=== PATIENT | male | born 1995 | race Caucasian/White ===

== ENCOUNTER 2023-08-05 13:29 | Emergency (ER) | payer BC ==
[2023-08-05 13:42] LABS: BASOPHILS ABSOLUTE AUTO 0.03 K/uL (0.00-0.20); BASOPHILS PERCENT AUTO 0.3 % (0.0-1.0); EOSINOPHILS ABSOLUTE AUTO 0.11 K/uL (0.00-0.45); EOSINOPHILS PERCENT AUTO 1.3 % (0.0-6.0); HEMATOCRIT 52.8 % (42.0-52.0); HEMOGLOBIN 18.6 g/dL (14.0-18.0); IMMATURE GRAN ABSOLUTE AUTO 0.03 K/uL (0.00-0.05); IMMATURE GRAN PERCENT AUTO 0.3 % (0.0-0.4); LYMPHOCYTES ABSOLUTE AUTO 2.38 K/uL (1.00-4.80); LYMPHOCYTES PERCENT AUTO 27.4 % (24.0-44.0); MEAN CORPUSCULAR HEMOGLOBIN 30.2 pg (28.0-32.0); MEAN CORPUSCULAR HGB CONC 35.2 g/dL (32.0-36.0); MEAN CORPUSCULAR VOLUME 85.9 fL (83.0-99.0); MEAN PLATELET VOLUME 8.3 fL (9.4-12.4); MONOCYTES ABSOLUTE AUTO 0.59 K/uL (0.00-0.80); MONOCYTES PERCENT AUTO 6.8 % (0.0-8.0); NEUTROPHILS ABSOLUTE AUTO 5.56 K/uL (1.80-7.70); NEUTROPHILS PERCENT AUTO 63.9 % (41.0-71.0); PLATELET COUNT,PLT 312 K/uL (150-400); RED BLOOD CELL COUNT 6.15 M/uL (4.52-5.90)
[2023-08-05] MEDS: Nitroglycerin 0.4 MG Tab.SL SL ONE (13:54)
[2023-08-05] MEDS: Aspirin 81 MG Tab.Chew PO ONE (13:55)
[2023-08-05 14:12] LABS: D-DIMER QUANTITATIVE 0.2 mg/L FEU (0.0-0.50); INR 1.05 (0.86-1.11); PTT,PARTIAL THROMBOPLSTIN TIME 26.4 SEC (23.9-30.7)
[2023-08-05 14:20] LABS: ALBUMIN 4.1 g/dL (3.4-5.0); BILIRUBIN TOTAL 0.3 mg/dL (0.2-1.0); CALCIUM 9.8 mg/dL (8.5-10.1); CREATININE 1.4 mg/dL (0.8-1.3); EST CRCL DRUG DOSING (CG) 70.26 mL/min; PROTEIN TOTAL,TP 8.2 g/dL (6.4-8.2)
[2023-08-05] MEDS: Enoxaparin 100 MG/1 ML Syringe SUBCUT STA (14:39)
[2023-08-05] MEDS: Morphine 4 MG/ML Syringe IVPUSH ONE (14:40)
== END 2023-08-05 17:35 ==
LOC: MW.ED 13:29
DX: I21.4 Non-ST elevation (NSTEMI) myocardial infarction (principal); I10 Essential (primary) hypertension; Z75.8 Other problems related to medical facilities and other health care; Z79.899 Other long term (current) drug therapy
CPT/HCPCS: 36415; 71045; 80053; 83690; 84484; 85025; 85379; 85610; 85730; 93005; 96374; 99285; A9270; J1650; J2270; 93010